=== PATIENT | female | born 1940 ===

== ENCOUNTER 2022-10-09 04:17 | Inpatient (IN) | payer OTHER ==
[~2022-10-09] VITALS: Ht 157.5 cm; Wt 62.1 kg
[~2022-10-09 04:17] MED LIST: CIPRO500 MG PO; PEPCID40 MG PO; ZOFRAN4 MG PO
[2022-10-09] MEDS ORDERED: DICYCLOMINE HCL20 MG PO (04:28)
[2022-10-09] MEDS ORDERED: METRONIDAZOLE500 MG PO (04:28)
[2022-10-09] MEDS ORDERED: VERAPAMIL ER240 MG PO (04:29)
--- NOTE | 2022-10-09 04:32 | NUR ---
PTE ALERTA Y ORIENTADA X3 REFIERE TENER NAUSEAS DESDE [facility] [place] SEMANA Y DOLOR ABDOMINAL. SE ATENDIO EN [facility] LAS NAUSEAS CONTINUAN.
--- NOTE | 2022-10-09 06:21 | NUR ---
SE ORIENTA PTE SOBRE TX A SEGUIR, EL CUAL REFIERE ENTENDER. SE COLECTAN MUESTRAS Y SE CANALIZA PTE UTILIZANDO MEDIDAS ASEPTICAS. SE ADM. [facility] [place] [facility] MEDICA
--- NOTE | 2022-10-09 07:15 | NUR ---
SE RECIBE PTE FEMENINA DE 82 ANOS ALERTA Y ORIENTADA X3 QUIEN AL MOMENTO NO REFIER DOLOR. PTE SE OBERBA RECIBIENDO INFUCION DE 0.9% NSS. PTE PEND A RESULTADOS DE LAB.
--- NOTE | 2022-10-09 11:25 | NUR ---
PTE RE EVALUADO POR MD LOPE[facility] [place] MED SE EDUCA A PTE SOBRE EL MIMSO Y REFIERE ENTENDER SE [place] MUESTRAS BAJO MEDIDAS ACEPTICAS.
--- NOTE | 2022-10-09 16:04 | NUR ---
SE RECIBE PTE ALERTA Y ORIENTADA EN [place], PTE CON H/L [place]O OWEN DE EDEMA. PTE EN ESPERA DE CONSULTA. PTE SE CONTINUA MONITORIANDO POR CAMBIOS.
[2022-10-10] MEDS ORDERED: VALSARTAN160 MG (10:52)
[2022-10-10] MEDS ORDERED: OMEPRAZOLE40 MG (10:52)
[2022-10-10] MEDS ORDERED: CALCIUM (10:52)
[2022-10-10] MEDS ORDERED: LEVO-T25 MCG (10:52)
[2022-10-10] MEDS ORDERED: ATHLETE'S FOOT130 GM (10:52)
[2022-10-10] MEDS ORDERED: GABAPENTIN100 M2 (10:52)
[2022-10-10] MEDS ORDERED: [UNRECOGNIZED DRUG - OTHER] (10:52)
[2022-10-10] MEDS ORDERED: SUCRALFATE1 GM (10:52)
[2022-10-10] MEDS ORDERED: PRAVASTATIN SOD40 MG (10:52)
== END 2022-10-17 15:53 | disposition home or self-care (01) | DRG 682 ==
LOC: ER 04:17 → MEDI 17:47
PROVIDERS: ADMIT Internal Medicine; ATTEND Internal Medicine
PROC: BW21ZZZ Computerized Tomography (CT Scan) of Abdomen and Pelvis (ICD-10-PCS; principal; 2022-10-09)
PROC: B24BYZZ Ultrasonography of Heart with Aorta using Other Contrast (ICD-10-PCS; 2022-10-10)
PROC: BT4JZZZ Ultrasonography of Kidneys and Bladder (ICD-10-PCS; 2022-10-10)
DX: N17.9 Acute kidney failure, unspecified (principal); J15.7 Pneumonia due to Mycoplasma pneumoniae; I13.11 Hypertensive heart and chronic kidney disease without heart failure, with stage 5 chronic kidney disease, or end stage renal disease; I31.39 Other pericardial effusion (noninflammatory); J91.8 Pleural effusion in other conditions classified elsewhere; K90.49 Malabsorption due to intolerance, not elsewhere classified; N18.5 Chronic kidney disease, stage 5; E86.0 Dehydration; E87.8 Other disorders of electrolyte and fluid balance, not elsewhere classified; J45.909 Unspecified asthma, uncomplicated; D72.829 Elevated white blood cell count, unspecified; J44.9 Chronic obstructive pulmonary disease, unspecified; K52.9 Noninfective gastroenteritis and colitis, unspecified; I48.91 Unspecified atrial fibrillation; Z87.891 Personal history of nicotine dependence; R53.81 Other malaise; R63.8 Other symptoms and signs concerning food and fluid intake